=== PATIENT | female | born 1975 | race Caucasian/White ===

== ENCOUNTER → 2017-07-24 | Outpatient (CLI) | payer OTHER ==
[2017-07-24 11:07] LABS: ABSOLUTE EOSINOPHILS # (AUTO) 0.2 10^3/uL (0.0-0.6); ABSOLUTE LYMPHOCYTES (AUTO) 2.3 10^3/uL (0.5-4.7); ABSOLUTE MONOCYTES (AUTO) 0.8 10^3/uL (0.1-1.4); ABSOLUTE NEUT (AUTO) 5.4 10^3/uL (1.7-8.2); BASOPHILS % (AUTO) 0.5 % (0-2); EOSINOPHILS % (AUTO) 2.6 % (0-6); HEMATOCRIT 45.9 % (36.0-47.0); HEMOGLOBIN 15.9 g/dL (12.0-15.5); HGB HCT DIFFERENCE 1.8; LYMPHOCYTES % (AUTO) 26.5 % (13-45); MEAN CORPUSCULAR HEMOGLOBIN 32.2 pg (27.0-33.4); MEAN CORPUSCULAR HGB CONC 34.7 g/dL (32.0-36.0); MEAN CORPUSCULAR VOLUME 93 fl (80-97); MONOCYTES % (AUTO) 8.7 % (3-13); RED BLOOD COUNT 4.95 10^6/uL (3.72-5.28); RED CELL DISTRIBUTION WIDTH 14.8 % (11.5-14.0); SEGMENTED NEUTROPHILS % (AUTO) 61.7 % (42-78); WHITE BLOOD COUNT 8.7 10^3/uL (4.0-10.5)
[2017-07-24 11:27] LABS: ALANINE AMINOTRANSFERASE 24 U/L (9-52); ALKALINE PHOSPHATASE 64 U/L (38-126); ANION GAP 11 (5-19); ASPARTATE AMINO TRANSFERASE 18 U/L (14-36); BILIRUBIN,DIRECT 0.4 mg/dL (0.0-0.4); BILIRUBIN,TOTAL 0.6 mg/dL (0.2-1.3); BLOOD UREA NITROGEN 6 mg/dL (7-20); CALCIUM 9.4 mg/dL (8.4-10.2); CARBON DIOXIDE 27 mmol/L (22-30); CHLORIDE 103 mmol/L (98-107); CREATININE RESULT 0.55 mg/dL (0.52-1.25); Direct HDL 36 mg/dL (>40); GLUCOSE 99 mg/dL (75-110); POTASSIUM 4.4 mmol/L (3.6-5.0); SODIUM 140.7 mmol/L (137-145); TOTAL PROTEIN 7.3 g/dL (6.3-8.2); TRIGLYCERIDES 221 mg/dL (<150)
[2017-07-24 11:38] LABS: DIRECT LDL 166 mg/dL (<100)
[2017-07-24 11:43] LABS: VLDL CHOLESTEROL 44.2 mg/dL (10-31)
== END ==
LOC: OD 10:00
DX: E11.9 Type 2 diabetes mellitus without complications (principal)
CPT/HCPCS: 36415; 80053; 80061; 82043; 84443; 85025

== ENCOUNTER 2017-08-03 08:10 | Emergency (ER) | payer SELFPAY ==
[2017-08-03 08:42] VITALS: BP 141/89
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
[2017-08-03] MEDS ORDERED: KETOROLAC TROMETHAMINE INJ/PF 30 MG/1 ML SDV IM ONE (10:12)
== END 2017-08-03 10:40 | disposition home or self-care (01) ==
LOC: ER 08:10
DX: H92.02 Otalgia, left ear (principal); R51 Headache; E78.00 Pure hypercholesterolemia, unspecified; I10 Essential (primary) hypertension; E11.9 Type 2 diabetes mellitus without complications; Z90.710 Acquired absence of both cervix and uterus
CPT/HCPCS: 99283; 96372; 70486; J1885

== ENCOUNTER 2017-08-16 18:38 | Emergency (ER) | payer SELFPAY ==
--- NOTE | 2017-08-16 19:05 | ER Document Report ---
ED Medical Screen (RME) - General Chief Complaint: Numbness of Arm Stated Complaint: POSSIBLE STROKE LIKE SYMPTOMS Time Seen by Provider: 08/16/17 18:53 Mode of Arrival: Ambulatory Information source: Patient TRAVEL OUTSIDE OF THE [place] IN LAST 30 DAYS: No - HPI Patient complains to provider of: Right facial numbness, left arm numbness Onset: Last week Notes: 08/16/17 19:03 Patient is a 42-year-old female presenting to the emergency room today complaining of one-week history of intermittent right facial numbness with left arm numbness and pain, she states last night she was lying in her bed and felt paralyzed, she does report a history of a right mandibular molar extraction approximately 2 weeks ago, she did follow-up last week with her dentist to let her know she was experiencing the symptoms and her dentist prescribed azithromycin which patient did not take because she is allergic to erythromycin , patient has a history of hypertension - Related Data Allergies/Adverse Reactions: erythromycin base [Erythromycin Base] Allergy (Intermediate, Verified 08/16/17 18:41) gabapentin [Gabapentin] Allergy (Intermediate, Verified 08/16/17 18:41) Hives lamotrigine [From Lamictal] Allergy (Verified 08/16/17 18:41) Past Medical History - Social History Chew tobacco use (# tins/day): No Frequency of alcohol use: None Drug Abuse: Marijuana - Past Medical History Cardiac Medical History: Reports: Hx Hypercholesterolemia, Hx Hypertension Denies: Hx Coronary Artery Disease, Hx Heart Attack Pulmonary Medical History: Reports: Hx Asthma, Hx Bronchitis, Hx Pneumonia Denies: Hx COPD Neurological Medical History: Reports: Hx Migraine. Denies: Hx Cerebrovascular Accident, Hx Seizures Endocrine Medical History: Reports: Hx Diabetes Mellitus Type 2 Renal/ Medical History: Denies: Hx Peritoneal Dialysis Musculoskeltal Medical History: Reports Hx Arthritis Psychiatric Medical History: Reports: Hx Depression Past Surgical History: Reports: Hx Gynecologic Surgery - D&C, Hx Hysterectomy, Hx Tubal Ligation. Denies: Hx Pacemaker - Immunizations Immunizations up to date: Yes Hx Diphtheria, Pertussis, Tetanus Vaccination: Yes History of Influenza Vaccine for 08/2017 - 12/2017 Season: No Physical Exam - Vital signs Vitals: Temp Pulse Resp BP Pulse Ox 97.9 F 81 20 151/87 H 99 08/16/17 18:41 08/16/17 18:41 08/16/17 18:41 08/16/17 18:41 08/16/17 18:41 Course - Vital Signs Vital signs: Temp Pulse Resp BP Pulse Ox 97.9 F 81 20 151/87 H 99 08/16/17 18:41 08/16/17 18:41 08/16/17 18:41 08/16/17 18:41 08/16/17 18:41
--- NOTE | 2017-08-16 19:47 | RADIOLOGY REPORT (SQ) ---
EXAM DESCRIPTION: CT HEAD WITHOUT COMPLETED DATE/TIME: 08/16/2017 7:21 pm REASON FOR STUDY: right facial numbness COMPARISON: None. TECHNIQUE: Axial images acquired through the brain without intravenous contrast. Images reviewed wi th bone, brain and subdural windows. Images stored on PACS. All CT scanners at this facility use dose modulation, iterative reconstruction, and/or weight based d osing when appropriate to reduce radiation dose to as low as reasonably achievable (ALARA). [facility]: Dose Right [facility]: CareDose [facility]: Dose Right [facility]: Teradose 4D [facility]: [employer] RADIATION DOSE: Up-to-date CT equipment and radiation dose reduction techniques were employed. CTDIv ol: 64.6 mGy. DLP: 1034 mGy-cm. mGy. LIMITATIONS: None. FINDINGS: VENTRICLES: Normal size and contour. CEREBRUM: No masses. No hemorrhage. No midline shift. No evidence for acute infarction. Normal gra y/white matter differentiation. No areas of low density in the white matter. CEREBELLUM: No masses. No hemorrhage. No alteration of density. No evidence for acute infarction. EXTRAAXIAL SPACES: No fluid collections. No masses. ORBITS AND GLOBE: No intra- or extraconal masses. Normal contour of globe without masses. CALVARIUM: No fracture. PARANASAL SINUSES: No fluid or mucosal thickening. SOFT TISSUES: No mass or hematoma. OTHER: No other significant finding. IMPRESSION: No acute intracranial findings. EVIDENCE OF ACUTE STROKE: NO. COMMENT: Quality ID # 436: Final reports with documentation of one or more dose reduction techniques (e.g., Automated exposure control, adjustment of the mA and/or kV according to patient size, use of iterative reconstruction technique) TECHNICAL DOCUMENTATION: JOB ID: [id number] [employer]- All Rights Reserved
[2017-08-16 20:06] LABS: ABSOLUTE BASOPHILS # (AUTO) 0.1 10^3/uL (0.0-0.2); ABSOLUTE EOSINOPHILS # (AUTO) 0.2 10^3/uL (0.0-0.6); ABSOLUTE LYMPHOCYTES (AUTO) 3.3 10^3/uL (0.5-4.7); ABSOLUTE MONOCYTES (AUTO) 0.9 10^3/uL (0.1-1.4); ABSOLUTE NEUT (AUTO) 6.3 10^3/uL (1.7-8.2); BASOPHILS % (AUTO) 1.2 % (0-2); EOSINOPHILS % (AUTO) 1.5 % (0-6); HEMATOCRIT 44.1 % (36.0-47.0); HEMOGLOBIN 15.6 g/dL (12.0-15.5); HGB HCT DIFFERENCE 2.7; LYMPHOCYTES % (AUTO) 30.5 % (13-45); MEAN CORPUSCULAR HEMOGLOBIN 32.6 pg (27.0-33.4); MEAN CORPUSCULAR HGB CONC 35.4 g/dL (32.0-36.0); MEAN CORPUSCULAR VOLUME 92 fl (80-97); MONOCYTES % (AUTO) 8.2 % (3-13); RED BLOOD COUNT 4.78 10^6/uL (3.72-5.28); RED CELL DISTRIBUTION WIDTH 14.7 % (11.5-14.0); SEGMENTED NEUTROPHILS % (AUTO) 58.6 % (42-78); WHITE BLOOD COUNT 10.7 10^3/uL (4.0-10.5)
[2017-08-16 20:19] LABS: ALANINE AMINOTRANSFERASE 29 U/L (9-52); ALKALINE PHOSPHATASE 68 U/L (38-126); ANION GAP 12 (5-19); ASPARTATE AMINO TRANSFERASE 17 U/L (14-36); BILIRUBIN,DIRECT 0.3 mg/dL (0.0-0.4); BILIRUBIN,TOTAL 0.3 mg/dL (0.2-1.3); BLOOD UREA NITROGEN 8 mg/dL (7-20); CALCIUM 9.7 mg/dL (8.4-10.2); CARBON DIOXIDE 26 mmol/L (22-30); CHLORIDE 104 mmol/L (98-107); CREATINE KINASE 42 U/L (30-135); CREATININE RESULT 0.47 mg/dL (0.52-1.25); GLUCOSE 97 mg/dL (75-110); POTASSIUM 4.4 mmol/L (3.6-5.0); SODIUM 141.5 mmol/L (137-145); TOTAL PROTEIN 7.3 g/dL (6.3-8.2)
[2017-08-16 20:22] LABS: AMORPHOUS SEDIMENT,URINE TRACE /HPF; APPEARANCE,URINE CLEAR; BILIRUBIN,URINE NEGATIVE (NEGATIVE); GLUCOSE, URINE NEGATIVE (NEGATIVE); KETONES,URINE NEGATIVE (NEGATIVE); LEUKOCYTE ESTERASE,URINE NEGATIVE (NEGATIVE); NITRITE,URINE NEGATIVE (NEGATIVE); PROTEIN,URINE NEGATIVE (NEGATIVE); URINE SPECIFIC GRAVITY 1.005; UROBILINOGEN,URINE NEGATIVE mg/dL (<2.0)
[2017-08-16 20:31] LABS: CREATINE KINASE MB 0.61 ng/mL (<4.55); TROPONIN I < 0.012 ng/mL
[2017-08-16] MEDS ORDERED: KETOROLAC TROMETHAMINE INJ/PF 30 MG/1 ML SDV IM ONE (21:18)
--- NOTE | 2017-08-16 21:21 | ER Document Report ---
ED General - General Chief Complaint: Numbness of Arm Stated Complaint: POSSIBLE STROKE LIKE SYMPTOMS Time Seen by Provider: 08/16/17 18:53 Mode of Arrival: Ambulatory Notes: Patient is a 42-year-old female presents emergency department complaining of 2 weeks of right shoulder pain, right face pain. Patient states that she had a dental extraction 2 weeks ago and since then has been having right shoulder pain. She denies any trauma, fall, recent heavy lifting. She does admit to history of degenerative disc disease in her neck. Otherwise she denies any weakness or numbness, difficulty speaking or swallowing, chest pain. TRAVEL OUTSIDE OF THE [place] IN LAST 30 DAYS: No - Related Data Allergies/Adverse Reactions: erythromycin base [Erythromycin Base] Allergy (Intermediate, Verified 08/16/17 18:41) gabapentin [Gabapentin] Allergy (Intermediate, Verified 08/16/17 18:41) Hives lamotrigine [From Lamictal] Allergy (Verified 08/16/17 18:41) Past Medical History - General Information source: Patient - Social History Smoking Status: Current Every Day Smoker Chew tobacco use (# tins/day): No Frequency of alcohol use: None Drug Abuse: Marijuana Family History: Reviewed & Not Pertinent - Past Medical History Cardiac Medical History: Reports: Hx Hypercholesterolemia, Hx Hypertension Denies: Hx Coronary Artery Disease, Hx Heart Attack Pulmonary Medical History: Reports: Hx Asthma, Hx Bronchitis, Hx Pneumonia Denies: Hx COPD Neurological Medical History: Reports: Hx Migraine. Denies: Hx Cerebrovascular Accident, Hx Seizures Endocrine Medical History: Reports: Hx Diabetes Mellitus Type 2 Renal/ Medical History: Denies: Hx Peritoneal Dialysis Musculoskeltal Medical History: Reports Hx Arthritis Psychiatric Medical History: Reports: Hx Depression Past Surgical History: Reports: Hx Gynecologic Surgery - D&C, Hx Hysterectomy, Hx Tubal Ligation. Denies: Hx Pacemaker - Immunizations Immunizations up to date: Yes Hx Diphtheria, Pertussis, Tetanus Vaccination: Yes Hx Pneumococcal Vaccination: 07/03/11 Review of Systems - Review of Systems Constitutional: No symptoms reported Cardiovascular: See HPI Respiratory: See HPI Neurological/Psychological: See HPI -: Yes All other systems reviewed and negative Physical Exam - Vital signs Vitals: Temp Pulse Resp BP Pulse Ox 97.9 F 81 20 151/87 H 99 08/16/17 18:41 08/16/17 18:41 08/16/17 18:41 08/16/17 18:41 08/16/17 18:41 - Notes Notes: PHYSICAL EXAM GENERAL: Alert, interacts well. HEAD: Normocephalic, atraumatic. EYES: Pupils equal, round, and reactive to light. Extraocular movements intact. ENT: Oral mucosa moist, tongue midline. NECK: Full range of motion. Supple. Trachea midline. LUNGS: Clear to auscultation bilaterally, no wheezes, rales, or rhonchi. No respiratory distress. HEART: Regular rate and rhythm. No murmurs, gallops, or rubs. ABDOMEN: Soft, nondistended, nontender. No guarding, rebound, or rigidity.. Bowel sounds present in all 4 quadrants. EXTREMITIES: Moves all 4 extremities spontaneously. No edema, radial and dorsalis pedis pulses 2/4 bilaterally. No cyanosis. PSYCH: Normal affect, normal mood. SKIN: Warm, dry, normal turgor. No rashes or lesions noted. - Neurological Neuro grossly intact: Yes Cognition: Normal Orientation: AAOx4 Jorge Coma Scale Eye Opening: Spontaneous Jorge Coma Scale Verbal: Oriented Jorge Coma Scale Motor: Obeys Commands [place] Coma Scale Total: 15 Speech: Normal. No: Dysarthria, Expressive aphasia, Receptive aphasia, Other Cranial nerves: Normal. No: Facial palsy, Forehead sparing, Gaze palsy, Sensory deficit, Tongue deviation, Other Cerebellar coordination: Normal. No: Gait ataxia, Heel-shepard, Finger-nose rhombey, Rapid alt. movements, Truncal ataxia, Other Motor strength normal: LUE, RUE, LLE, RLE Additional motor exam normals: Equal experimental psychologist. No: Weakness Sensory: Normal Course - Re-evaluation Re-evalutation: 08/16/17 21:19 Patient is a 42-year-old female who is hemodynamically stable, no acute distress afebrile. Physical exam is consistent with musculoskeletal cause of her right shoulder pain. CT of the head was ordered in triage and did not show any evidence of acute stroke or acute intracranial process. Patient is improved after Toradol. States she has had muscular neuropsych this in the past but she was nervous because it did not go away that she would make sure she was having a heart attack. Troponins are negative without any evidence of EKG abnormalities or changes. Patient is stable for discharge home with instruction to follow-up with her primary care at [facility] and referral to pain management given her chronic neck pain - Vital Signs Vital signs: Temp Pulse Resp BP Pulse Ox 98.7 F 69 18 146/87 H 100 08/16/17 21:46 08/16/17 21:46 08/16/17 21:46 08/16/17 21:46 08/16/17 21:46 - Laboratory Result Diagrams: 08/16/17 19:54 08/16/17 19:54 Laboratory results interpreted by me: 08/16/17 08/16/17 19:54 19:54 WBC 10.7 H Hgb 15.6 H RDW 14.7 H Creatinine 0.47 L - Diagnostic Test Radiology reviewed: Image reviewed, Reports reviewed Discharge - Discharge Clinical Impression: Shoulder pain, Degenerative disc disease, Toothache Condition: Good Disposition: HOME, SELF-CARE Instructions: Use of [id number] Ibuprofen ([facility]), Myalagia (Muscle Pain) ( [facility]), Exercise Program for the Shoulder ([facility]) Additional Instructions: Please take the penicillin as directed Please follow up with [facility] and pain management Prescriptions: Methylprednisolone [Medrol Dosepack (4 mg/Tab) 21 Tab/Dosepak] 4 mg PO ASDIR PRN #21 tab.ds.pk PRN Reason: Penicillin V Potassium [Penicillin Vk 500 mg Tablet] 500 mg PO BID #14 tablet Referrals: [facility] [NO LOCAL MD] - Follow up as needed
--- NOTE | 2017-08-16 21:30 | EKG REPORT ---
SEVERITY:- NORMAL ECG - SINUS RHYTHM : Confirmed by: Jesus Ng MD 16-Aug-2017 21:30:01
[2017-08-16 21:49] VITALS: BP 146/87
== END 2017-08-16 21:46 | disposition home or self-care (01) ==
LOC: ER 18:38
DX: M25.511 Pain in right shoulder (principal); M50.30 Other cervical disc degeneration, unspecified cervical region; K08.89 Other specified disorders of teeth and supporting structures; R20.0 Anesthesia of skin; R51 Headache; F17.200 Nicotine dependence, unspecified, uncomplicated; X50.0XXA Overexertion from strenuous movement or load, initial encounter
CPT/HCPCS: 93005; 99284; 96372; 36415; 87086; 82553; 82550; 85025; 80053; 81001; 84484; 70450; 93010; J1885

== ENCOUNTER → 2017-10-01 | Outpatient (CLI) | payer OTHER | LOC: OD 13:19 | DX: E11.9 Type 2 diabetes mellitus without complications (principal) | CPT/HCPCS: 36415; 83036 ==

== ENCOUNTER → 2018-07-06 | Outpatient (CLI) | payer OTHER ==
[2018-07-06 14:44] LABS: ALANINE AMINOTRANSFERASE 18 U/L (9-52); ALBUMIN 4.2 g/dL (3.5-5.0); ALKALINE PHOSPHATASE 50 U/L (38-126); ANION GAP 9 (5-19); ASPARTATE AMINO TRANSFERASE 14 U/L (14-36); BILIRUBIN,DIRECT 0.3 mg/dL (0.0-0.4); BILIRUBIN,TOTAL 0.5 mg/dL (0.2-1.3); BLOOD UREA NITROGEN 10 mg/dL (7-20); CALCIUM 9.7 mg/dL (8.4-10.2); CARBON DIOXIDE 26 mmol/L (22-30); CHLORIDE 104 mmol/L (98-107); GLUCOSE 94 mg/dL (75-110); POTASSIUM 4.8 mmol/L (3.6-5.0); SODIUM 139.3 mmol/L (137-145); TOTAL PROTEIN 7.7 g/dL (6.3-8.2); TRIGLYCERIDES 293 mg/dL (<150)
[2018-07-06 14:54] LABS: DIRECT LDL 121 mg/dL (<100)
[2018-07-06 14:56] LABS: VLDL CHOLESTEROL 58.6 mg/dL (10-31)
[2018-07-06 15:39] LABS: FREE T3 3.19 pg/mL (2.77-5.27); FREE T4 (FREE THYROXINE) 0.91 ng/dL (0.78-2.19)
[2018-07-06 15:52] LABS: THYROID STIMULATING HORMONE 1.92 uIU/mL (0.47-4.68)
== END ==
LOC: CCC 12:57
DX: I10 Essential (primary) hypertension (principal)
CPT/HCPCS: 36415; 80053; 80061; 84436; 84439; 84443; 84481; 86430

== ENCOUNTER 2018-07-24 21:08 | Emergency (ER) | payer SELFPAY ==
[2018-07-24] MEDS ORDERED: NORMAL SALINE 1000 ML 1,000 ML IV ONE (22:56)
--- NOTE | 2018-07-24 22:59 | ER Document Report ---
ED Medical Screen (RME) - General Chief Complaint: Dizziness Stated Complaint: DIZZINESS Time Seen by Provider: 07/24/18 22:52 Notes: 43-year-old female with chief complaint of upper abdominal pain with some nausea and also of dizziness episode. Patient states she suddenly felt very lightheaded and she got down on the floor to avoid from passing out. She denies fall injury. She admits to taking 15 mg of Percocet which was not prescribed to her prior to the symptoms. She states she used methamphetamine yesterday but denies ever injecting IV drugs. She denies fever, chest pain, difficulty breathing. She denies any current symptoms other than upper abdominal pain and feeling tired. Came by EMS, blood glucose checked at 150. Denies alcohol. Family members with the patient. TRAVEL OUTSIDE OF THE [place] IN LAST 30 DAYS: No - Related Data Allergies/Adverse Reactions: erythromycin base [Erythromycin Base] Allergy (Intermediate, Verified 08/16/17 18:41) gabapentin [Gabapentin] Allergy (Intermediate, Verified 08/16/17 18:41) Hives lamotrigine [From Lamictal] Allergy (Verified 08/16/17 18:41) Past Medical History - Past Medical History Cardiac Medical History: Reports: Hx Hypercholesterolemia, Hx Hypertension Denies: Hx Coronary Artery Disease, Hx Heart Attack Pulmonary Medical History: Reports: Hx Asthma, Hx Bronchitis, Hx Pneumonia Denies: Hx COPD Neurological Medical History: Reports: Hx Migraine. Denies: Hx Cerebrovascular Accident, Hx Seizures Endocrine Medical History: Reports: Hx Diabetes Mellitus Type 2 Renal/ Medical History: Denies: Hx Peritoneal Dialysis Musculoskeltal Medical History: Reports Hx Arthritis Psychiatric Medical History: Reports: Hx Depression Past Surgical History: Reports: Hx Gynecologic Surgery - D&C, Hx Hysterectomy, Hx Tubal Ligation. Denies: Hx Pacemaker - Immunizations Immunizations up to date: Yes Hx Diphtheria, Pertussis, Tetanus Vaccination: Yes History of Influenza Vaccine for 08/2017 - 12/2017 Season: No Physical Exam - Vital signs Vitals: Temp Pulse Resp BP Pulse Ox 98.2 F 78 18 104/74 95 07/24/18 21:24 07/24/18 21:24 07/24/18 21:24 07/24/18 21:24 07/24/18 21:24 - Respiratory Respiratory status: No respiratory distress Breath sounds: Normal - Abdominal Tenderness: Tender - Patient with tenderness generally in the upper abdomen Course - Re-evaluation Re-evalutation: Patient is alert, oriented, slightly disheveled, family members with the patient. - Vital Signs Vital signs: Temp Pulse Resp BP Pulse Ox 98.2 F 78 18 104/74 95 07/24/18 21:24 07/24/18 21:24 07/24/18 21:24 07/24/18 21:24 07/24/18 21:24 Doctor's Discharge - Discharge [facility]errals: [facility] [Primary [facility] Provider] - Follow up as needed
[2018-07-25 00:01] LABS: ABSOLUTE BASOPHILS # (AUTO) 0.1 10^3/uL (0.0-0.2); ABSOLUTE EOSINOPHILS # (AUTO) 0.2 10^3/uL (0.0-0.6); ABSOLUTE LYMPHOCYTES (AUTO) 2.6 10^3/uL (0.5-4.7); ABSOLUTE MONOCYTES (AUTO) 0.8 10^3/uL (0.1-1.4); ABSOLUTE NEUT (AUTO) 11.7 10^3/uL (1.7-8.2); BASOPHILS % (AUTO) 0.7 % (0-2); EOSINOPHILS % (AUTO) 1.3 % (0-6); HEMATOCRIT 45.8 % (36.0-47.0); HEMOGLOBIN 15.9 g/dL (12.0-15.5); LYMPHOCYTES % (AUTO) 16.9 % (13-45); MEAN CORPUSCULAR HEMOGLOBIN 32.9 pg (27.0-33.4); MEAN CORPUSCULAR HGB CONC 34.7 g/dL (32.0-36.0); MEAN CORPUSCULAR VOLUME 95 fl (80-97); MONOCYTES % (AUTO) 5.3 % (3-13); PLATELET COUNT 282 10^3/uL (150-450); RED BLOOD COUNT 4.82 10^6/uL (3.72-5.28); RED CELL DISTRIBUTION WIDTH 14.2 % (11.5-14.0); SEGMENTED NEUTROPHILS % (AUTO) 75.8 % (42-78); TOTAL CELLS COUNTED % (AUTO) 100 %; WHITE BLOOD COUNT 15.5 10^3/uL (4.0-10.5)
[2018-07-25 00:35] LABS: APPEARANCE,URINE SLIGHTLY-CLOUDY; BILIRUBIN,URINE NEGATIVE (NEGATIVE); COLOR,URINE YELLOW; GLUCOSE, URINE NEGATIVE (NEGATIVE); KETONES,URINE NEGATIVE (NEGATIVE); LEUKOCYTE ESTERASE,URINE NEGATIVE (NEGATIVE); NITRITE,URINE NEGATIVE (NEGATIVE); PROTEIN,URINE 30 mg/dL (NEGATIVE); URINE SPECIFIC GRAVITY 1.017
[2018-07-25 01:42] LABS: URINE BARBITURATES SCREEN NEGATIVE; URINE BENZODIAZEPINES SCREEN NEGATIVE; URINE COCAINE SCREEN NEGATIVE; URINE MARIJUANA (THC) SCREEN NEGATIVE; URINE METHADONE SCREEN NEGATIVE; URINE PHENCYCLIDINE SCREEN NEGATIVE
[2018-07-25 02:38] LABS: ALANINE AMINOTRANSFERASE 22 U/L (9-52); ALBUMIN 4.7 g/dL (3.5-5.0); ALKALINE PHOSPHATASE 63 U/L (38-126); ANION GAP 12 (5-19); ASPARTATE AMINO TRANSFERASE 25 U/L (14-36); BILIRUBIN,DIRECT 0.3 mg/dL (0.0-0.4); BILIRUBIN,TOTAL 0.6 mg/dL (0.2-1.3); BLOOD UREA NITROGEN 18 mg/dL (7-20); CALCIUM 10.5 mg/dL (8.4-10.2); CARBON DIOXIDE 24 mmol/L (22-30); CHLORIDE 103 mmol/L (98-107); GLUCOSE 96 mg/dL (75-110); LIPASE 56.2 U/L (23-300); POTASSIUM 3.9 mmol/L (3.6-5.0); SODIUM 138.7 mmol/L (137-145); TOTAL PROTEIN 9.1 g/dL (6.3-8.2)
[2018-07-25 02:40] LABS: ALCOHOL < 10 mg/dL (NONE DETECTED)
--- NOTE | 2018-07-25 02:49 | ER Document Report ---
ED General - General Chief Complaint: Dizziness Stated Complaint: DIZZINESS Time Seen by Provider: 07/24/18 22:52 Mode of Arrival: Medic Information source: Patient, Emergency Med Personnel, [facility] Records Cannot obtain history due to: Intoxicated Notes: 43-year-old female with hypertension, hyperlipidemia, asthma, diabetes, substance abuse presents via EMS with chief complaint of upper abdominal pain with some nausea and also of dizziness episode. Patient states she suddenly felt very lightheaded and she got down on the floor to avoid from passing out. She denies fall injury. She admits to taking 15 mg of Percocet which was not prescribed to her prior to the symptoms. She states she used methamphetamine yesterday but denies ever injecting IV drugs. She denies fever, chest pain, difficulty breathing. She denies any current symptoms other than upper abdominal pain and feeling tired. Came by EMS, blood glucose checked at 150. Denies alcohol. Family members with the patient. TRAVEL OUTSIDE OF THE [place] IN LAST 30 DAYS: No - HPI Onset: Just prior to arrival - Related Data Allergies/Adverse Reactions: erythromycin base [Erythromycin Base] Allergy (Intermediate, Verified 07/25/18 03:37) gabapentin [Gabapentin] Allergy (Intermediate, Verified 07/25/18 03:37) Hives lamotrigine [From Lamictal] Allergy (Verified 07/25/18 03:37) Past Medical History - General Information source: Patient, Emergency Med Personnel, [facility] Records - Social History Smoking Status: Current Every Day Smoker Chew tobacco use (# tins/day): No Frequency of alcohol use: None Drug Abuse: Methamphetamine, Prescription drugs Lives with: Friend Family History: Reviewed & Not Pertinent Patient has suicidal ideation: No Patient has homicidal ideation: No - Past Medical History Cardiac Medical History: Reports: Hx Hypercholesterolemia, Hx Hypertension Denies: Hx Coronary Artery Disease, Hx Heart Attack Pulmonary Medical History: Reports: Hx Asthma, Hx Bronchitis, Hx Pneumonia Denies: Hx COPD Neurological Medical History: Reports: Hx Migraine. Denies: Hx Cerebrovascular Accident, Hx Seizures Endocrine Medical History: Reports: Hx Diabetes Mellitus Type 2 Renal/ Medical History: Denies: Hx Peritoneal Dialysis Musculoskeletal Medical History: Reports Hx Arthritis Psychiatric Medical History: Reports: Hx Depression Past Surgical History: Reports: Hx Gynecologic Surgery - D&C, Hx Hysterectomy, Hx Tubal Ligation. Denies: Hx Pacemaker - Immunizations Immunizations up to date: Yes Hx Diphtheria, Pertussis, Tetanus Vaccination: Yes Hx Pneumococcal Vaccination: 07/03/11 Review of Systems - Review of Systems Notes: REVIEW OF SYSTEMS: CONSTITUTIONAL : Denies fever, chills, or sweats. Denies recent illness. Denies weight loss, recent hospitalizations. EENT: Denies visual changes, eye pain. Denies sore throat, oral lesions, difficulty swallowing. CARDIOVASCULAR: Denies chest pain. Denies palpitations. Denies lower extremity edema. RESPIRATORY: Denies cough. Denies shortness of breath, wheezing. GASTROINTESTINAL: Denies abdominal distention. Denies vomiting, or diarrhea. Denies blood in vomitus, stools, or per rectum. Denies black, tarry stools. Denies constipation. GENITOURINARY: Denies difficulty urinating, painful urination, frequency, blood in urine, or vaginal discharge. MUSCULOSKELETAL: Denies back or neck pain or stiffness. Denies joint pain or swelling. SKIN: Denies rash, lesions or sores. HEMATOLOGIC : Denies easy bruising or bleeding. LYMPHATIC: Denies swollen glands. NEUROLOGICAL: Denies confusion or altered mental status. Denies loss of consciousness. Denies headache. Denies weakness or paralysis. Denies problems difficulty with ambulation, slurred speech. Denies sensory loss, numbness, or tingling. Denies seizures. PSYCHIATRIC: Denies anxiety or stress. Denies depression, suicidal ideation, or homicidal ideation. Denies visual or auditory hallucinations. Physical Exam - Vital signs Vitals: Temp Pulse Resp BP Pulse Ox 98.2 F 78 18 104/74 95 07/24/18 21:24 07/24/18 21:24 07/24/18 21:24 07/24/18 21:24 07/24/18 21:24 Interpretation: Normal - Notes Notes: PHYSICAL EXAMINATION: GENERAL: Somnolent but easily aroused. Obviously intoxicated HEAD: Atraumatic, normocephalic. EYES: Pupils equal round and reactive to light, extraocular movements intact, conjunctiva are normal. ENT: Nares patent, oropharynx clear without exudates. Dry mucous membranes. NECK: Normal range of motion, supple without lymphadenopathy LUNGS: Breath sounds clear to auscultation bilaterally and equal. No wheezes rales or rhonchi. HEART: Regular rate and rhythm without murmurs ABDOMEN: Soft, nontender, nondistended abdomen. No guarding, no rebound. No masses appreciated. Female : deferred Musculoskeletal: Normal range of motion, no pitting or edema. No cyanosis. NEUROLOGICAL: Cranial nerves grossly intact. Normal speech, normal gait. Normal sensory, motor exams PSYCH: Obviously intoxicated SKIN: Warm, Dry, normal turgor, no rashes or lesions noted. Course - Re-evaluation Re-evalutation: Laboratory 07/24/18 07/24/18 07/25/18 23:52 23:52 00:02 WBC 15.5 H RBC 4.82 Hgb 15.9 H Hct 45.8 MCV 95 MCH 32.9 MCHC 34.7 RDW 14.2 H Plt Count 282 Seg Neutrophils % 75.8 Lymphocytes % 16.9 Monocytes % 5.3 Eosinophils % 1.3 Basophils % 0.7 Absolute Neutrophils 11.7 H Absolute Lymphocytes 2.6 Absolute Monocytes 0.8 Absolute Eosinophils 0.2 Absolute Basophils 0.1 Sodium Cancelled Potassium Cancelled Chloride Cancelled Carbon Dioxide Cancelled Anion Gap Cancelled BUN Cancelled Creatinine Cancelled Est GFR ( Amer) Cancelled Est GFR (Non-Af Amer) Cancelled Glucose Cancelled Calcium Cancelled Total Bilirubin Cancelled Direct Bilirubin Cancelled Neonat Total Bilirubin Cancelled Neonat Direct Bilirubin Cancelled Neonat Indirect Bili Cancelled AST Cancelled ALT Cancelled Alkaline Phosphatase Cancelled Total Protein Cancelled Albumin Cancelled Lipase Cancelled Urine Color YELLOW Urine Appearance SLIGHTLY-CLOUDY Urine pH 6.0 Ur Specific [place] 1.017 Urine Protein 30 H Urine Glucose (UA) NEGATIVE Urine Ketones NEGATIVE Urine Blood NEGATIVE Urine Nitrite NEGATIVE Urine Bilirubin NEGATIVE Urine Urobilinogen 2.0 H Ur Leukocyte Esterase NEGATIVE Urine WBC (Auto) 6 U Hyaline Cast (Auto) 40 Squamous Epi Cells Auto 3 Urine Mucus (Auto) OCC Urine Ascorbic Acid NEGATIVE Urine HCG, Qual NEGATIVE Urine Opiates Screen Urine Methadone Screen Ur Barbiturates Screen Ur Phencyclidine Scrn Ur Amphetamines Screen U Benzodiazepines Scrn Urine Cocaine Screen U Marijuana (THC) Screen Serum Alcohol Cancelled 07/25/18 07/25/18 00:02 02:05 WBC RBC Hgb Hct MCV MCH MCHC RDW Plt Count Seg Neutrophils % Lymphocytes % Monocytes % Eosinophils % Basophils % Absolute Neutrophils Absolute Lymphocytes Absolute Monocytes Absolute Eosinophils Absolute Basophils Sodium 138.7 Potassium 3.9 Chloride 103 Carbon Dioxide 24 Anion Gap 12 BUN 18 Creatinine 0.72 Est GFR ( Amer) > 60 Est GFR (Non-Af Amer) > 60 Glucose 96 Calcium 10.5 H Total Bilirubin 0.6 Direct Bilirubin 0.3 Neonat Total Bilirubin Not Reportable Neonat Direct Bilirubin Not Reportable Neonat Indirect Bili Not Reportable AST 25 ALT 22 Alkaline Phosphatase 63 Total Protein 9.1 H Albumin 4.7 Lipase 56.2 Urine Color Urine Appearance Urine pH Ur Specific [place] Urine Protein Urine Glucose (UA) Urine Ketones Urine Blood Urine Nitrite Urine Bilirubin Urine Urobilinogen Ur Leukocyte Esterase Urine WBC (Auto) U Hyaline Cast (Auto) Squamous Epi Cells Auto Urine Mucus (Auto) Urine Ascorbic Acid Urine HCG, Qual Urine Opiates Screen UNCONFIRMED POSITIVE Urine Methadone Screen NEGATIVE Ur Barbiturates Screen NEGATIVE Ur Phencyclidine Scrn NEGATIVE Ur Amphetamines Screen Not Reportable U Benzodiazepines Scrn NEGATIVE Urine Cocaine Screen NEGATIVE U Marijuana (THC) Screen NEGATIVE Serum Alcohol < 10 07/25/18 05:53 43-year-old female with hypertension, hyperlipidemia, asthma, diabetes, substance abuse presents via EMS with chief complaint of upper abdominal pain with some nausea and also of dizziness episode. Patient states she suddenly felt very lightheaded and she got down on the floor to avoid from passing out. She denies fall injury. She admits to taking 15 mg of Percocet which was not prescribed to her prior to the symptoms. She states she used methamphetamine yesterday but denies ever injecting IV drugs. She denies fever, chest pain, difficulty breathing. She denies any current symptoms other than upper abdominal pain and feeling tired. Came by EMS, blood glucose checked at 150. Denies alcohol. Family members with the patient. Patient is obviously intoxicated. She is somnolent but arousable but falls back asleep immediately. Urine drug screen is positive for opiates. Urinalysis is not consistent with UTI. Patient has a leukocytosis likely stress induced but no evidence of anemia. CMP is unremarkable. Patient's lightheadedness, abdominal pain is likely secondary to her drug abuse. On reevaluation patient is more alert. She sits up. She is talking more appropriately. her boyfriend is at the bedside, and will be taking the patient home. Patient provided the opportunity to ask questions, and express concerns. Discharge instructions discussed. Patient is agreeable with discharge home. Return indications explained and discussed with the patient who displays understanding. Patient encouraged to return to the emergency department immediately with any concerns. Results were discussed with the patient at this point, after careful consideration I feel that that patient can be discharged from the emergency department, the patient was educated treatments and reasons to return to the emergency department based on their presumed diagnosis as noted above, they were advised to followup with a primary care physician in 2-3 days. Patient was agreeable to plan of care. Dictation on this chart was performed using voice recognition software and may result in unintended grammatical, spelling, syntax or errors. 07/25/18 05:55 07/25/18 06:11 - Vital Signs Vital signs: Temp Pulse Resp BP Pulse Ox 97.4 F 69 15 113/73 97 07/25/18 05:19 07/25/18 05:19 07/25/18 05:19 07/25/18 05:19 07/25/18 05:19 - Laboratory Result Diagrams: 07/24/18 23:52 07/25/18 02:05 Laboratory results interpreted by me: 07/24/18 07/25/18 07/25/18 23:52 00:02 02:05 WBC 15.5 H Hgb 15.9 H RDW 14.2 H Absolute Neutrophils 11.7 H Calcium 10.5 H Total Protein 9.1 H Urine Protein 30 H Urine Urobilinogen 2.0 H - EKG Interpretation by Ia EKG shows normal: Sinus rhythm Rate: Normal Rhythm: NSR When compared to previous EKG there are: No significant change Discharge - Discharge Clinical Impression: Dizziness, Methamphetamine use, Opiate abuse, episodic Abdominal pain Qualifiers: Abdominal location: generalized Qualified Code(s): R10.84 - Generalized abdominal pain Condition: Good Disposition: HOME, SELF-CARE Instructions: Abdominal Pain ([facility]), Dizziness ([facility]), Drug Toxicity ([facility]) Additional Instructions: Your lab work today was normal. Your EKG showed no concerning changes. Your dizziness and abdominal pain are likely related to your drug use. [facility] [NO [facility]AL MD] - Follow up as needed
[2018-07-25] MEDS ORDERED: NALOXONE HCL INJ 2 MG/2 ML DISP.SYRIN IV ONE (06:05)
[2018-07-25 06:21] VITALS: BP 99/57
--- NOTE | 2018-07-25 14:32 | EKG REPORT ---
SEVERITY:- ABNORMAL ECG - SINUS RHYTHM NONSPECIFIC T ABNORMALITIES, LATERAL LEADS : Confirmed by: Maye Fox MD 25-Jul-2018 14:31:19
== END 2018-07-25 06:35 | disposition home or self-care (01) ==
LOC: ER 21:08
DX: R42 Dizziness and giddiness (principal); R10.84 Generalized abdominal pain; F11.10 Opioid abuse, uncomplicated; F15.90 Other stimulant use, unspecified, uncomplicated; I10 Essential (primary) hypertension; E78.5 Hyperlipidemia, unspecified; J45.909 Unspecified asthma, uncomplicated; E11.9 Type 2 diabetes mellitus without complications
CPT/HCPCS: 36415; 80053; 80307; 81001; 81025; 83690; 85025; 93005; 93010; 99284

== ENCOUNTER 2018-07-25 09:49 | Emergency (ER) | payer SELFPAY ==
[2018-07-25 10:04] VITALS: BP 123/81
[2018-07-25] MEDS ORDERED: DOXYCYCLINE HYCLATE 100 MG TABLET PO ONE (10:49)
--- NOTE | 2018-07-25 10:51 | ER Document Report ---
HPI - HPI Patient complains to provider of: Tick bite Onset: This morning Onset/Duration: Sudden Quality of pain: No pain Pain Level: Denies Context: Patient states she was just recently discharged from here this morning and whenever she left she noticed that she had a tick to her left lower extremity. Patient states she does have a previous history of Lyme's disease. Patient states she was not happy with her care last night and that is why she did not remove the tick from her leg when she first noticed it. Patient states she wanted to prove to staff that she did have an insect bite. Patient without any rash or fever. Associated Symptoms: Other - Tick bite Exacerbated by: Denies Relieved by: Denies - ROS ROS below otherwise negative: Yes Systems Reviewed and Negative: Yes All other systems reviewed and negative - CONSTITUTIONAL Constitutional: DENIES: Fever, Chills - NEURO Neurology: DENIES: Headache - GASTROINTESTINAL Gastrointestinal: DENIES: Nausea - REPRODUCTIVE Reproductive: DENIES: : - MUSCULOSKELETAL Musculoskeletal: DENIES: Extremity pain - DERM Skin Color: Normal Notes: Tick bite Past Medical History - General Information source: Patient - Social History Smoking Status: Current Every Day Smoker Smoking Education Provided: Yes Frequency of alcohol use: Occasional Drug Abuse: Methamphetamine Occupation: None Family History: Reviewed & Not Pertinent - Past Medical History Cardiac Medical History: Reports: Hx Hypercholesterolemia, Hx Hypertension Denies: Hx Coronary Artery Disease, Hx Heart Attack Pulmonary Medical History: Reports: Hx Asthma, Hx Bronchitis, Hx Pneumonia Denies: Hx COPD Neurological Medical History: Reports: Hx Migraine. Denies: Hx Cerebrovascular Accident, Hx Seizures Endocrine Medical History: Reports: Hx Diabetes Mellitus Type 2 Renal/ Medical History: Denies: Hx Peritoneal Dialysis Musculoskeletal Medical History: Reports Hx Arthritis Psychiatric Medical History: Reports: Hx Depression Past Surgical History: Reports: Hx Gynecologic Surgery - D&C, Hx Hysterectomy, Hx Tubal Ligation. Denies: Hx Pacemaker - Immunizations Immunizations up to date: Yes Hx Diphtheria, Pertussis, Tetanus Vaccination: Yes Hx Pneumococcal Vaccination: 07/03/11 Vertical Provider Document - CONSTITUTIONAL Agree With Documented VS: Yes Exam Limitations: No Limitations General Appearance: WD/WN, No Apparent Distress - INFECTION CONTROL TRAVEL OUTSIDE OF THE [place] IN LAST 30 DAYS: No - HEENT HEENT: Atraumatic, Normocephalic - NECK Neck: Normal Inspection, Supple - RESPIRATORY Respiratory: Breath Sounds Normal, No Respiratory Distress - CARDIOVASCULAR Cardiovascular: Regular Rate, Regular Rhythm - BACK Back: Normal Inspection - MUSCULOSKELETAL/EXTREMETIES Musculoskeletal/Extremeties: MAEW, FROM - NEURO Level of Consciousness: Awake, Alert, Appropriate Motor/Sensory: No Motor Deficit - DERM Integumentary: Warm, Dry, No Rash Notes: Small tick to left calf Course - Re-evaluation Re-evalutation: 07/25/18 10:50 Tick removed with gentle traction. No rash, no fever - Vital Signs Vital signs: Temp Pulse Resp BP Pulse Ox 97.7 F 81 18 123/81 98 07/25/18 10:02 07/25/18 10:02 07/25/18 10:02 07/25/18 10:02 07/25/18 10:02 Discharge - Discharge Clinical Impression: Tick bite Qualifiers: Encounter type: initial encounter Qualified Code(s): W57.XXXA - Bitten or stung by nonvenomous insect and other nonvenomous arthropods, initial encounter Condition: Stable Disposition: HOME, SELF-CARE Instructions: Tick Bites ([facility]) Additional Instructions: Return immediately for any new or worsening symptoms Followup with your primary care provider, call tomorrow to make a followup appointment Forms: Smoking Cessation Education Referrals: [facility] [Provider Group] - Follow up as needed
== END 2018-07-25 11:07 | disposition home or self-care (01) ==
LOC: ER 09:49
DX: S80.862A Insect bite (nonvenomous), left lower leg, initial encounter (principal); W57.XXXA Bitten or stung by nonvenomous insect and other nonvenomous arthropods, initial encounter; F17.200 Nicotine dependence, unspecified, uncomplicated; I10 Essential (primary) hypertension; J45.909 Unspecified asthma, uncomplicated; E11.9 Type 2 diabetes mellitus without complications
CPT/HCPCS: 99281

== ENCOUNTER 2019-03-22 01:25 | Emergency (ER) | payer SELFPAY ==
[2019-03-22] MEDS ORDERED: ACETAMINOPHEN 325 MG TABLET PO ONE (02:30)
--- NOTE | 2019-03-22 02:48 | ER Document Report ---
ED Medical Screen (RME) - General Chief Complaint: Fall Injury Stated Complaint: FALL/NECK INJURY Time Seen by Provider: 03/22/19 02:46 Notes: 44-year-old female, chief complaint of head/neck injury. She states she caught her foot on a rug, fell, hit her head on a [place] cabinet. She denies loss of consciousness but does report nausea, headache, neck pain. She was bleeding from her scalp. Tetanus is up-to-date. Denies alcohol or a blood thinner. TRAVEL OUTSIDE OF THE [place] IN LAST 30 DAYS: No - Related Data Allergies/Adverse Reactions: erythromycin base [Erythromycin Base] Allergy (Intermediate, Verified 07/25/18 09:55) gabapentin [Gabapentin] Allergy (Intermediate, Verified 07/25/18 09:55) Hives lamotrigine [From Lamictal] Allergy (Verified 07/25/18 09:55) Past Medical History - Past Medical History Cardiac Medical History: Reports: Hx Hypercholesterolemia, Hx Hypertension Denies: Hx Coronary Artery Disease, Hx Heart Attack Pulmonary Medical History: Reports: Hx Asthma, Hx Bronchitis, Hx Pneumonia Denies: Hx COPD Neurological Medical History: Reports: Hx Migraine. Denies: Hx Cerebrovascular Accident, Hx Seizures Endocrine Medical History: Reports: Hx Diabetes Mellitus Type 2 Renal/ Medical History: Denies: Hx Peritoneal Dialysis Musculoskeltal Medical History: Reports Hx Arthritis Psychiatric Medical History: Reports: Hx Depression Past Surgical History: Reports: Hx Gynecologic Surgery - D&C, Hx Hysterectomy, Hx Tubal Ligation. Denies: Hx Pacemaker - Immunizations Immunizations up to date: Yes Hx Diphtheria, Pertussis, Tetanus Vaccination: Yes History of Influenza Vaccine for 08/2017 - 12/2017 Season: No Physical Exam - Vital signs Vitals: Temp Pulse Resp BP Pulse Ox 98 F 112 H 16 235/119 H 98 03/22/19 01:36 03/22/19 01:36 03/22/19 01:36 03/22/19 01:36 03/22/19 01:36 - Back Back: Other - Discoloration with bruising and questionable swelling located at the base of the skull and over the cervical spine - Skin Skin irregularity: Laceration - Vertical laceration over the occipital scalp Course - Re-evaluation Re-evalutation: Patient with concerning ecchymosis and swelling at the base of the skull on triage evaluation. There is significant tenderness over the area. There is a small laceration over the occipital scalp that is not currently bleeding. Patient is alert and cooperative fortunately. She is hypertensive and tachycardic. Upgraded to triage level 2 because of the significant signs of trauma, CAT scans will be performed. I have greeted and performed a rapid initial assessment of this patient. A comprehensive ED assessment and evaluation of the patient, analysis of test results and completion of the medical decision making process will be conducted by additional ED providers. - Vital Signs Vital signs: Temp Pulse Resp BP Pulse Ox 98 F 112 H 16 235/119 H 98 03/22/19 01:36 03/22/19 01:36 03/22/19 01:36 03/22/19 01:36 03/22/19 01:36
--- NOTE | 2019-03-22 03:34 | RADIOLOGY REPORT (SQ) ---
EXAM DESCRIPTION: CT HEAD WITHOUT IV CONTRAST COMPLETED DATE/TME: 03/22/2019 02:46 CLINICAL HISTORY: 44 years Female, fall, head/neck injury, swelling/bruising COMPARISON: 08/16/17 TECHNIQUE: No contrast. Coronal and sagittal reformat. This exam was performed according to our departmental dose-optimization program, which includes automated exposure control, adjustment of the mA and/or kV according to patient size and/or use of iterative reconstruction technique. FINDINGS: Smooth high attenuation, 0.3 cm thickening of the posterior interhemispheric falx suggestive of subdural hematoma. No infarct. No mass, mass effect, or midline shift. Atherosclerosis. Brain and extra-axial structures appear otherwise intact. IMPRESSION: Small subdural hematoma of the interhemispheric falx.
--- NOTE | 2019-03-22 03:37 | RADIOLOGY REPORT (SQ) ---
EXAM DESCRIPTION: XR LUMBAR SPINE ANTEROPOSTERIOR, LATERAL, AND OBLIQUES COMPLETED DATE/TME: 03/22/2019 02:52 CLINICAL HISTORY: 44 years, Female, fall, pain COMPARISON: None. NUMBER OF VIEWS: Five TECHNIQUE: AP, lateral and oblique images of the lumbar spine LIMITATIONS: None. FINDINGS: The alignment of the lumbar spine is satisfactory. There is no acute fracture or subluxation. The vertebral heights are maintained. There is mild disc space narrowing with marginal osteophytes at T12-L1. The neural foramen appear widely patent. Tubal ligation clips are noted within the pelvis. IMPRESSION: No acute fracture or subluxation. copyright 2010 [employer]- All Rights Reserved
--- NOTE | 2019-03-22 03:39 | RADIOLOGY REPORT (SQ) ---
EXAM DESCRIPTION: CT CERVICAL SPINE WITHOUT IV CONTRAST COMPLETED DATE/TME: 03/22/2019 02:46 CLINICAL HISTORY: 44 years Female, fall, head/neck injury, swelling/bruising Comparison: None. Technique: No contrast. Coronal and sagittal reformat. This exam was performed according to our departmental dose-optimization program, which includes automated exposure control, adjustment of the mA and/or kV according to patient size and/or use of iterative reconstruction technique.[facility]: Dose Right [facility]: CareDose [facility]: Dose Right [facility]: Teradose 4D [facility]: 8aweek LIMITATIONS: None Findings: Occipital skull fracture with 0.4 cm impaction. 3.6 x 2.3 x 3.1 cm hematoma of the subcutaneous soft tissues of the right paracentral mid neck. Abnormal CT of the head reported separately. Normal alignment. Normal curvature. No fracture. Normal vertebral heights. Partially imaged nuchal soft tissues, and upper thorax appear otherwise grossly intact. IMPRESSION: 1. Occipital skull fracture with 0.4 cm impaction. 2. 3.6 x 2.3 x 3.1 cm hematoma of the subcutaneous soft tissues of the right paracentral mid neck. 3. Abnormal CT of the head reported separately.
[2019-03-22] MEDS ORDERED: HYDROMORPHONE HCL INJ/PF 2 MG/ML AMPULE IV ONE ×2 (03:58→07:42)
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
[2019-03-22] MEDS ORDERED: LIDOCAINE 1% INJ-PF (10 MG/ML) 30 ML SDV INJ ONE (04:22)
[2019-03-22] MEDS ORDERED: HYDRALAZINE HCL INJ/PF 20 MG/1 ML SDV IV ONE (05:06)
[2019-03-22] MEDS ORDERED: NICOTINE 21 MG/24 HR PATCH.TD24 TD ONE (05:43)
[2019-03-22] MEDS ORDERED: CEFAZOLIN 1 GM/D5W RTU 1 GM/50 ML RTUPB IV SCH (06:00)
[2019-03-22] MEDS ORDERED: ONDANSETRON HCL INJ/PF 4 MG/2 ML SDV IV ONE (06:17)
[2019-03-22 08:55] VITALS: BP 158/95
== END 2019-03-22 08:05 | disposition short-term general hospital (02) ==
LOC: ER 01:25
DX: S02.119B Unspecified fracture of occiput, initial encounter for open fracture (principal); S19.9XXA Unspecified injury of neck, initial encounter; W01.10XA Fall on same level from slipping, tripping and stumbling with subsequent striking against unspecified object, initial encounter; E78.00 Pure hypercholesterolemia, unspecified; I10 Essential (primary) hypertension; E11.9 Type 2 diabetes mellitus without complications; Z88.3 Allergy status to other anti-infective agents; Z90.710 Acquired absence of both cervix and uterus
CPT/HCPCS: 96376; 99284; 96375; 96365; 72110; 70450; 72125; 12011; J0690; J0360; J3490; J1170; J2405

== ENCOUNTER 2019-03-26 20:45 | Emergency (ER) | payer SELFPAY ==
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
[2019-03-26] MEDS ORDERED: TRAMADOL HCL 50 MG TABLET PO ONE (23:53)
[2019-03-26] MEDS ORDERED: METOPROLOL TARTRATE 25 MG TABLET PO ONE (23:53)
[2019-03-26] MEDS ORDERED: LISINOPRIL 10 MG TABLET PO ONE (23:53)
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
[2019-03-27 00:43] VITALS: BP 190/141
== END 2019-03-27 00:47 | disposition home or self-care (01) ==
LOC: ER 20:45
DX: S02.119A Unspecified fracture of occiput, initial encounter for closed fracture (principal); S06.5X0A Traumatic subdural hemorrhage without loss of consciousness, initial encounter; R42 Dizziness and giddiness; F19.10 Other psychoactive substance abuse, uncomplicated; R51 Headache; X58.XXXA Exposure to other specified factors, initial encounter; I10 Essential (primary) hypertension; E11.9 Type 2 diabetes mellitus without complications; J45.909 Unspecified asthma, uncomplicated
CPT/HCPCS: 70450; 99284

== ENCOUNTER 2019-06-14 23:23 | Emergency (ER) | payer SELFPAY ==
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
[2019-06-15 03:14] LABS: APPEARANCE,URINE SLIGHTLY-CLOUDY; BILIRUBIN,URINE NEGATIVE (NEGATIVE); COLOR,URINE YELLOW; GLUCOSE, URINE NEGATIVE (NEGATIVE); KETONES,URINE NEGATIVE (NEGATIVE); LEUKOCYTE ESTERASE,URINE TRACE (NEGATIVE); NITRITE,URINE NEGATIVE (NEGATIVE); PROTEIN,URINE 30 mg/dL (NEGATIVE); UROBILINOGEN,URINE NEGATIVE mg/dL (<2.0)
[2019-06-15 03:28] LABS: URINE BARBITURATES SCREEN NEGATIVE; URINE BENZODIAZEPINES SCREEN NEGATIVE; URINE COCAINE SCREEN NEGATIVE; URINE METHADONE SCREEN NEGATIVE; URINE PHENCYCLIDINE SCREEN NEGATIVE
[2019-06-15 03:31] LABS: URINE MARIJUANA (THC) SCREEN UNCONFIRMED POSITIVE
[2019-06-15 05:52] VITALS: BP 163/102
[2019-06-15] MEDS ORDERED: DIPH/PERTUSS(ACELL)/TETANUS VAC/PF 0.5 ML SYR (>=10YO) IM ONE (06:27)
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
[2019-06-15] MEDS ORDERED: ACETAMINOPHEN 325 MG TABLET ONE (08:30)
[2019-06-15] MEDS ORDERED: ACETAMINOPHEN 325 MG TABLET PO ONE (08:43)
== END 2019-06-15 09:04 | disposition home or self-care (01) ==
LOC: ER 23:23
DX: S01.01XA Laceration without foreign body of scalp, initial encounter (principal); S02.119A Unspecified fracture of occiput, initial encounter for closed fracture; Y09 Assault by unspecified means; R51 Headache; M54.2 Cervicalgia; M25.512 Pain in left shoulder; M79.642 Pain in left hand; M79.632 Pain in left forearm; M25.522 Pain in left elbow; M89.8X2 Other specified disorders of bone, upper arm; I10 Essential (primary) hypertension; J45.909 Unspecified asthma, uncomplicated; E11.9 Type 2 diabetes mellitus without complications; Z88.1 Allergy status to other antibiotic agents; Z88.6 Allergy status to analgesic agent; Z88.8 Allergy status to other drugs, medicaments and biological substances
CPT/HCPCS: 70450; 72125; 80307; 81001; 90471; 90715; 99284